=== PATIENT | male | born 1955 | race Caucasian/White ===

== ENCOUNTER 2019-08-01 08:00 | Outpatient (RCR) | payer OTHER, SELFPAY ==
--- NOTE | 2019-06-05 10:28 | HP.OTEVAL ---
Patient's Visit Information STEFANIA WOODRUFF is a 64 year old M, referred to Occupational Therapy by Gee Cartagena MD, with a diagnosis of CTS right synovitis/tenosynovitis right forearm. Date of Evaluation: 06/05/19 Occupational Therapist: Lilliana Chong, OTR/[place], CHT - Subjective Subjective: This 64 year old male was seen for OT eval following a [place] Opponesplasty and carpal tunnel release. Pt states his hand would wake him up 3-4 x a night with the brace on. He decided to go ahead with sx. Pt has sx 05/14/19. Pt returned 2 weeks later for orthosis. pt is currently s/p 3 weeks following a [place] opponesplasty and CTR. Pt reports minimal pain and swelling, good ROM and states orthosis fits fine. pt is here today for further ed. on folowing Dr. Cartagena's protocol and returing pt to PLOF with ADLs and IADLS. - ADLs Dressing: Button shirt, Pants, Socks, Shoes Fasteners: Tie shoes, Buttons, Snaps, Belt Eating: Use silverware, Cut food, Drink from glass Bathing: Handle washcloth & soap Yard: Mow lawn, [place] - Pain right hand 1 Pain Intensity Range: 0, 3 - ROM Wrist: right 50/45 left 60/55 CMC: right 10 left 15 MP: right 45 left 35 IP: right 50 left 60 Opposition: 6 ROM Comments: pt demo right digit ROM WFL - Strength Internet Ecommerce Specialist: right NT left 30# PAIN IN LEFT WRIST Lateral Pinch: right NT left 12# Tripod Pinch: right NT left 12# Strength Comments: right will be tested at later date - Sensation Thumb: right 3.22 left 3.84 Index: right 3.22 left 3.61 Middle: right 3.61 left 3.22 Ring: right 3.61 left 3.22 Little: right 3.61 left 3.22 - DASH-Disabilities of Arm, Shoulder& Hand DASH Sum: 22 - Quick DASH-Disab of Arm,Shoulder& Hand Quick DASH Score: 55.0000 - Goals Comment: Dr. Cartagena's [place] Opponesplasty and CTR protocol. Goal:Daily scar massage when approriate: Yes Goal:ROM equal to unaffected hand: Yes Goal:Internet Ecommerce Specialist/Pinch strength at least 75% of unaffected hand: Yes Goal:No pain with affected hand use: Yes Goal:Full use of affected hand in daily activities including: Yes Goal:Improvement in sensation documented by [place]: Yes Goal:Decrease scar hypersensitivity: Yes - Rehabilitation General Assessment: Pt is 3 weeks s/p right CTR, right wrist flexor tenosynovectomy, decoompression of right ulnar nerve at wrist, [place] opposition transfer, Vascularized hypothenar flap on 05/14/19. pt is limited with functional use of right UE for ADls and IADLs at this time.Pt would benefit from skilled OT services 1-2x week for 6-[address] Cartagena's [place] oppoesplasty and CTR protocol. Today therapist reviewed protocol, scar mtg and ex with pt. pt demo understanding of ex and reasoning for following Dr. clark. pt given handout and demo understanding and agree to POC. Rehabilitation Potential: Excellent - Anticipated Interventions Anticipated Interventions: A/AAROM/PROM, Strengthening, Scar Care, Triggerpoint Release, Desensitization, Sensory Retraining, Modalities, Orthoses, Joint Protection/Energy Conservation, Fine Motor Coord/Saul - Visit Plan Frequency: 1-2x /Week Duration: 6 Weeks TEXT: Thank you for the opportunity to evaluate your patient. For Medicare and Medicare HMO plans, please review the plan of care and approve it. It will need to be FAXED BACK to us at [phone] for Medicare purposes. Please let me know if there are questions or concerns regarding this plan of care. Physician Signature: Date:
--- NOTE | 2019-08-01 08:43 | HP.OTREVAL ---
Gee Cartagena MD, It has been my pleasure to treat STEFANIA WOODRUFF over the last 5 visits for CTS right synovitis/tenosynovitis right forearm. Please see the progress note below for an update on the occupational therapy plan of care! Subjective: pt arrives states he is feeling good- states he has returned to splitting [employer], IND with ADLs and IADLS. 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 right lateral pinch 20#. right tripod pinch 15#. wrist 60/45. thumb MP 45. thumb IP 50. pt demo full composite fist- pt sensation has imporved testing thumb all digits at 3.22. pt does c/o thick band around volar ulnar styloid/proximal pisiform region- this does soften following scar mtg. pt has been advised to cont scar mtg 2x a day for the next 6 weeks. pt has returned to all ADLs and IADLS even splitting [employer] without difficulty. Plan Plan: pt to return to for follow up apt. Anticipated Interventions Anticipated Interventions: A/AAROM/PROM, Strengthening, Scar Care, Triggerpoint Release, Desensitization, Sensory Retraining, Modalities, Orthoses, Joint Protection/Energy Conservation, Fine Motor Coord/Saul Please do not hesitate to contact me at [phone] by phone or if you have questions or concerns regarding this new plan of care! Sincerely, Lilliana Chong, OTR/L, CHT
--- NOTE | 2019-10-19 08:58 | HP.OTDCSUM_ITS ---
HP - OT D/C Summary It has been my pleasure to treat STEFANIA WOODRUFF under orders from Gee Cartagena MD, for the diagnosis of CTS right synovitis/tenosynovitis right forearm for a total of 5 visit(s). Please see the following information for a summary of their discharge status. pt returned to and called to state he doesn't need any further therapy services. Pt reported he had returned to performing all ADls and IADls on IND. level. Pt d/c at this time. 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 right lateral pinch 20#. right tripod pinch 15#. wrist 60/45. thumb MP 45. thumb IP 50. pt demo full composite fist- pt sensation has imporved testing thumb all digits at 3.22. pt does c/o thick band around volar ulnar styloid/proximal pisiform region- this does soften following scar mtg. pt has been advised to cont scar mtg 2x a day for the next 6 weeks. 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 - Goals Patient Goals: Regain Mobility, Regain Strength, Improve Fine Motor Skills, Use Hand/Wrist/Arm Normally Again, Sleep Better Goal:Daily scar massage when approriate: Yes Goal:ROM equal to unaffected hand: Yes Goal:Head Waitress/Pinch strength at least 75% of unaffected hand: Yes Goal:No pain with affected hand use: Yes Goal:Full use of affected hand in daily activities including: Yes Goal:Improvement in sensation documented by [place]cedes: Yes Goal:Decrease scar hypersensitivity: Yes - Plan Plan: pt to return to for follow up apt. if does not schedule further apts pt will be d/c - D/C Information If there are questions or concerns regarding this patient's occupational therapy, please fell free to call me at [phone]. Thank you for the referral of this patient. Sincerely, Lilliana Chong, ZENAR/L, [place]
== END 2019-08-01 19:00 | disposition home or self-care (01) ==
LOC: OT 08:00
PROVIDERS: Family Provider Family Medicine; PCP Family Medicine; Referring Provider Orthopaedic Surgery; Visit Provider Orthopaedic Surgery
DX: M65.831 Other synovitis and tenosynovitis, right forearm (principal); G56.01 Carpal tunnel syndrome, right upper limb
CPT/HCPCS: 97035; 97110; 97140; 97166